=== PATIENT | female | born 1990 | race Native Hawaiian/Other Pacific Islander ===

== ENCOUNTER 2016-08-18 22:04 | Emergency (ER) | payer OTHER ==
[~2016-08-18] VITALS: Ht 160 cm; Wt 63.7 kg
[2016-08-18 22:41] LABS: PLATELET COUNT 241 K/uL (152-353)
[2016-08-18 23:05] LABS: POTASSIUM 3.2 mmol/L (3.6-5.2); SODIUM 140 mmol/L (136-145)
[2016-08-18 23:46] VITALS: BP 126/73; TEMP 97.7
== END 2016-08-18 23:51 | disposition home or self-care (01) ==
LOC: ED 22:04
DX: N20.1 Calculus of ureter (principal); N23 Unspecified renal colic
CPT/HCPCS: 36415; 80053; 81000; 85027; 96361; 96374; 99284; J1885; J2405